=== PATIENT | male | born 1980 | race American Indian/Alaskan Native ===

== ENCOUNTER 2016-10-02 12:46 | Emergency (ER) | payer SELFPAY ==
[2016-10-02 13:05] VITALS: BP 124/80
[2016-10-02 13:46] LABS: Hematocrit 49.8 % (35.5-45.6); Hemoglobin 16.8 gm/dl (11.8-15.2); Mean Corpuscular HGB Conc 34 % (32-34); Mean Corpuscular Hemoglobin 33 pg (28-32); Mean Corpuscular Volume 98 fl (84-94); Platelet Count 247 K/mm3 (140-440); Red Blood Count 5.08 M/mm3 (3.65-5.03); Red Cell Distribution Width 13.5 % (13.2-15.2); White Blood Count 7.4 K/mm3 (4.5-11.0)
[2016-10-02 13:47] LABS: Anion Gap 21 mmol/L; Blood Urea Nitrogen 12 mg/dL (9-20); Calcium 9.2 mg/dL (8.4-10.2); Carbon Dioxide 23 mmol/L (22-30); Chloride 98.4 mmol/L (98-107); Glucose 86 mg/dL (75-100); Potassium 3.8 mmol/L (3.6-5.0); Sodium 139 mmol/L (137-145)
[2016-10-02 14:59] LABS: Urine Drugs of Abuse Note Disclamer
[2016-10-02 15:25] LABS: Bilirubin,Urine NEG (Negative); Blood,Urine SM (Negative); Ketones,Urine NEG (Negative); Leukocyte Esterase,Urine NEG (Negative); Mucus,Urine FEW /HPF; Nitrite,Urine NEG (Negative); Protein,Urine <15 mg/dL mg/dL (Negative); Urobilinogen,Urine < 2.0 mg/dL (<2.0)
== END 2016-10-02 21:00 | disposition left against medical advice (07) ==
LOC: ED 12:46
DX: F19.10 Other psychoactive substance abuse, uncomplicated (principal); F10.10 Alcohol abuse, uncomplicated; Z53.21 Procedure and treatment not carried out due to patient leaving prior to being seen by health care provider
CPT/HCPCS: 36415; 80048; 80307; 81001; 85027

== ENCOUNTER 2016-10-07 08:36 | Emergency (ER) | payer SELFPAY ==
[2016-10-07 09:32] LABS: Basophils % (Auto) 0.6 % (0.0-1.8); Eosinophils % (Auto) 0.5 % (0.0-4.3); Hemoglobin 16.5 gm/dl (11.8-15.2); Mean Corpuscular HGB Conc 34 % (32-34); Mean Corpuscular Hemoglobin 34 pg (28-32); Mean Corpuscular Volume 98 fl (84-94); Platelet Count 200 K/mm3 (140-440); Red Cell Distribution Width 13.6 % (13.2-15.2); White Blood Count 5.2 K/mm3 (4.5-11.0)
[2016-10-07 09:38] LABS: Anion Gap 17 mmol/L; Blood Urea Nitrogen 11 mg/dL (9-20); Calcium 9.2 mg/dL (8.4-10.2); Carbon Dioxide 28 mmol/L (22-30); Chloride 99.1 mmol/L (98-107); Glucose 155 mg/dL (75-100); Potassium 3.9 mmol/L (3.6-5.0); Sodium 140 mmol/L (137-145)
[2016-10-07 10:43] LABS: Urine Drugs of Abuse Note Disclamer
[2016-10-07 10:54] LABS: Bilirubin,Urine NEG (Negative); Blood,Urine NEG (Negative); Ketones,Urine TR mg/dL (Negative); Leukocyte Esterase,Urine NEG (Negative); Mucus,Urine 3+ /HPF; Nitrite,Urine NEG (Negative); WBC,Urine < 1.0 /HPF (0.0-6.0)
--- NOTE | 2016-10-07 21:03 | Emergency Department Report ---
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 The last time that he used alcohol was yesterday and the last time that he used crack cocaine was 2 days ago and says it is only been that long because "that is when I ran out of money." Patient says that he was thinking of cutting his wrist or hang himself "just before he walked in here." He also said that he was thinking of "cutting my baby mama." He has no diagnosed psychiatric history but says he is seeing people in the past regarding psychiatric issues. He denies any auditory or visual hallucinations. ED Past Medical Hx - Past Medical History Additional medical history: alcoholic/drug abuse/homeless - Surgical History Past Surgical History?: No - Social History Smoking Status: Current Every Day Smoker Substance Use Type: Alcohol, Cocaine, Marijuana - Medications Home Medications: Home Medications Medication Instructions Recorded Confirmed Last Taken Type No Known Home Medications [No 10/07/16 10/07/16 Unknown History Reported Home Medications] ED Review of Systems ROS: Stated complaint: MH EVAL Other details as noted in HPI Comment: All other systems reviewed and negative Constitutional: denies: chills, fever Eyes: denies: eye pain, eye discharge, vision change ENT: denies: ear pain, throat pain Respiratory: denies: cough, shortness of breath, wheezing Cardiovascular: denies: chest pain, palpitations Gastrointestinal: denies: abdominal pain, nausea, diarrhea Genitourinary: denies: urgency, dysuria Musculoskeletal: denies: back pain, joint swelling, arthralgia Skin: denies: rash, lesions Neurological: denies: headache, weakness, paresthesias Psychiatric: depression, homicidal thoughts, suicidal thoughts. denies: auditory hallucinations, visual hallucinations Physical Exam - Physical Exam Vital Signs: Vital Signs 10/07/16 08:56 Temperature 98.7 F Pulse Rate 95 H Respiratory 17 Rate Blood Pressure 158/111 O2 Sat by Pulse 100 Oximetry Physical Exam: GENERAL: The patient is well-developed well-nourished. HEENT: Normocephalic. Atraumatic. Extraocular motions are intact. Patient has moist mucous membranes. Pupils equal reactive to light bilaterally. NECK: Supple. Trachea is midline. CHEST/LUNGS: Clear to auscultation. There is no respiratory distress noted. HEART/CARDIOVASCULAR: Regular. There is no tachycardia. There is no gallop rub or murmur. ABDOMEN: Abdomen is soft, nontender. Patient has normal bowel sounds. There is no abdominal distention. SKIN: There is no rash. There is no edema. There is no diaphoresis. NEURO: The patient is awake, alert, and oriented. The patient is cooperative. The patient has no focal neurologic deficits. The patient has normal speech. Cranial nerves II through XII grossly intact. MUSCULOSKELETAL: There is no tenderness or deformity. There is no limitation range of motion. There is no evidence of acute injury. PSYCH: Patient has pressured speech. He appears easily angered. ED Course Vital Signs 10/07/16 08:56 Temperature 98.7 F Pulse Rate 95 H Respiratory 17 Rate Blood Pressure 158/111 O2 Sat by Pulse 100 Oximetry ED Medical Decision Making - Lab Data Result diagrams: 10/07/16 09:09 10/07/16 09:09 - Medical Decision Making 36-year-old male presents to the emergency department with the complaint of substance dependence, depression, suicidal and homicidal ideations. He does not have any diagnosed psychiatric conditions. He appears to have some pressured speech and is easily angered but is able to maintain control and answered questions appropriately. His labs are also unremarkable. Blood alcohol level negative. Positive on urine drug screen for marijuana and cocaine. The patient has been made a 1013 secondary to the suicidal and homicidal ideations. He appears medically clear for psychiatric placement and the crisis therapists been contacted to assist. - Differential Diagnosis substance abuse, bipolar disorder, schizophrenia, schizoaffective, depressi Critical Care Time: No Critical care attestation.: If time is entered above; I have spent that time in minutes in the direct care of this critically ill patient, excluding procedure time. ED Disposition Clinical Impression: Suicidal ideations, Homicidal ideations Depression Qualifiers: Depression Type: unspecified Qualified Code(s): F32.9 - Major depressive disorder, single episode, unspecified Disposition: [id number]/[id number] PSY HOSP/PSY UNIT Is pt being admited?: No Condition: Stable Referrals: PRIMARY CARE, [Primary Care Provider] - 3-5 Days Time of Disposition: 22:15
--- NOTE | 2016-10-08 20:29 | Consultation ---
History of Present Illness - Reason for Consult Reason for consult: psych consult - Chief Complaint Chief complaint: cc: " lot of things, let me give it to you straight" HPI: 36 year old BM with no known prior psych history presents to after incurring multiple psychosocial issues leading to depression and ongoing substance use. Patient notes that he is homeless, left him in [place], no money or finances, and recently lost his job. He notes that he is getting increasingly labile with his mood and feels that he can snap at any moment- leading to him wanting to kill his baby momma b/c she took the kid, and then kill himself. Patient notes mood swings all his life. He'll have racing thoughts and not wanting to sleep at times. He's unable to give me specific times periods though. Currently he is depressed with +SI plan to cut himself. He admits to use of cocaine- as much as he can use and etoh use- 1 pint daily- both of which he last used 2 days ago. Medications and Allergies Allergies Allergy/AdvReac Type Severity Reaction Status Date / Time No Known Allergies Allergy Unverified 10/02/16 13:05 Home Medications Medication Instructions Recorded Confirmed Last Taken Type No Known Home Medications [No 10/07/16 10/07/16 Unknown History Reported Home Medications] Past psychiatric history - past Psychiatric treatment and history psychiatric treatment history: past psych history- inpt and outpt: none no Suicide attempts family history of rampant cocaine use substance history: years of cocaine use, THC use, + DUI and no pending legal issues from using, also drink etoh- 1 pint daily last use of everything was 2 days ago., has suspended license. - Social History Social history: other (, 1 kid, homeless, no job, poor family support, school: college, no abuse history) Mental Status Exam - Vital signs Last Vital Signs Temp 98.0 F 10/08/16 08:32 Pulse 90 10/08/16 08:32 Resp 16 10/08/16 08:32 BP 130/92 10/08/16 08:32 Pulse Ox 96 10/08/16 08:32 - Exam Orientation: time, place, person Affect: depressed Mood: other (labile) Thought content: paranoia Thought Process: Circumstantial, Tangential Perceptions: none Speech: rapid Concentration: distractible Motor activity: tense Level of consciousness: alert Memory: Intact Sleep Symptoms: Sleepiness Interaction: cooperative Mini mental status exam(if necessary): 24-30 Results Result Diagrams: 10/07/16 09:09 10/07/16 09:09 All other labs normal. Assessment and Plan Assessment and plan: 36 year old BM with no known prior psych history presents to after incurring multiple psychosocial issues leading to depression, irritability, and ongoing substance use. plan: mood: patient has symptoms concurrent with bipolar disorder 1- mixed. will begin depakote 500mg po bid at this time- side effect, risks benefits discussed. Can also use concurrent seroquel in future. follow lft's substance use- observe for any withdrawal symptoms- currently known at this time , will add ativan 1mg tid prn for both withdrawal and agitation.
[2016-10-08] MEDS ORDERED: ATIVAN PO PRN (20:37)
[2016-10-08 21:32] LABS: Albumin 4.4 g/dL (3.9-5); Albumin/Globulin Ratio 1.6 %; Bilirubin,Direct 0.2 mg/dL (0-0.2); Bilirubin,Indirect 0.8 mg/dL; Total Protein 7.2 g/dL (6.3-8.2)
[2016-10-09] MEDS ORDERED: TYLENOL ONE (09:52)
[2016-10-09] MEDS ORDERED: TYLENOL PO ONE (09:52)
--- NOTE | 2016-10-09 10:39 | Progress Note ---
Subjective - Reason for Consult Consult date: 10/09/16 Reason for consult: Pscyhiatry Follow-up - Chief Complaint Chief complaint: "I have many thoughts today" 36 year old BM with no known prior psych history presents to after incurring multiple psychosocial issues leading to depression and ongoing substance use. Today patient is calm and cooperative during the assessment. He stated that he want to get his life together and be a better dad. He stated using recreational drugs and drinking (etoh) for 20 years. He stated that it's time to "get it together." Patient has family in the area, but stated that he has "burned those bridges." He denies SI/HI's and AVH's. He denies racing thought, but does worry about his future. He stated that his mood can be erratic. He denies any side effects of the Depakote. Mental Status Exam - Vital signs Last Vital Signs Temp 98.1 F 10/09/16 08:25 Pulse 80 10/09/16 08:25 Resp 14 10/09/16 08:26 BP 118/75 10/09/16 08:25 Pulse Ox 97 10/09/16 08:25 - Exam Narrative exam: MSE: Appearance: calm, cooperative Behavior: good eye contact Speech: regular rate and tone Mood: "okay today" Affect: congruent to mood Thought Process: linear Thought Content: denies SI/HI's and AVH's Motor Activity: ambulatory Cognition: A/Ox3 Insight: fair Judgment: fair Assessment and Plan Impression: Patient has symptoms concurrent with bipolar disorder 1- mixed. Today patient is calm and cooperative during the assessment. He stated that he want to get his life together and be a better dad. He stated using recreational drugs and drinking (etoh) for 20 years. He stated that it's time to "get it together." Patient has family in the area, but stated that he has "burned those bridges." He denies SI/HI's and AVH's. No acute withdrawals noted (etoh). Recommendation/Plan: Continue 1013 with possible placement to out or inpatient psy services. Continue Depakote 500 mg PO BID for mood.
[2016-10-10 08:11] VITALS: BP 118/85
--- NOTE | 2016-10-10 13:10 | Progress Note ---
Subjective - Reason for Consult Consult date: 10/10/16 Reason for consult: Psychiatry Follow-up - Chief Complaint Chief complaint: "My next move" 36 year old BM with no known prior psych history presents to after incurring multiple psychosocial issues leading to depression and ongoing substance use. Today patient is calm and cooperative during the assessment. He stated that his biggest concern now is his next move in life. We discussed a short and termite control servicer plan on how he can stay clean (sober and stay off the drugs). He agreed, that he must stay sober and stop using recreational drugs. He is willing to seek rehab for his substance abuse. He denies SI/HI's, AVH's, and depression symptoms. He denies any side effects of Depakote. Mental Status Exam - Vital signs Last Vital Signs Temp 99.7 F H 10/10/16 08:09 Pulse 67 10/10/16 08:09 Resp 14 10/10/16 08:09 BP 118/85 10/10/16 08:09 Pulse Ox 100 10/10/16 08:09 - Exam Narrative exam: MSE: Appearance: calm, cooperative Behavior: good eye contact Speech: regular rate and tone Mood: "okay" Affect: congruent to mood Thought Process: linear Thought Content: denies SI/HI's and AVH's Motor Activity: ambulatory Cognition: A/Ox3 Insight: fair Judgment: fair Assessment and Plan Impression: Patient has symptoms concurrent with bipolar disorder 1- mixed. Today patient is calm and cooperative during the assessment. He stated that his biggest concern now is his next move in life. We discussed a short term and correction plan. He agreed, that he must stay sober and stop using recreational drugs. He is willing to seek rehab for his substance abuse. He denies SI/HI's and AVH's. No acute withdrawals noted (etoh). Patient is homeless. Patient is no threat to self. Recommendation/Plan: Rescind 1013. Patient given local outpatient psy/rehab services for his local area ([facility]). Continue Depakote 500 mg PO BID for mood. Discussed the importance to abstain from consumption of alcohol (etoh). Also discussed the importance to abstain from using recreational drugs with patient. Discussed joining a AA/NA group. Safety contract completed with patient. Ch[employer] Hooker involved, patient is homeless.
--- NOTE | 2016-10-10 16:07 | Emergency Department Report ---
Blank Doc - Documentation Documentation: Dr. Alexander prepped Patient for discharge after the 1013 was rescinded by mental health. Patient needed a Depakote prescription therefore I wrote for 30 day supply of Depakote [address] Alexander was no longer available.
== END 2016-10-10 16:08 | disposition home or self-care (01) ==
LOC: ED 08:36 → EEVIPCON 08:36 → ED 10-10 16:08
DX: R45.851 Suicidal ideations (principal); R45.850 Homicidal ideations; F32.9 Major depressive disorder, single episode, unspecified; F17.200 Nicotine dependence, unspecified, uncomplicated; F12.10 Cannabis abuse, uncomplicated; F14.10 Cocaine abuse, uncomplicated
CPT/HCPCS: 36415; 80048; 80074; 80164; 80307; 81001; 85025; 99284; G0480; 80320